=== PATIENT | male | born 1960 | race Two or more races ===

== ENCOUNTER 2020-09-07 13:15 | Day surgery (SDC) | payer MEDICARE, OTHER ==
[~2020-09-07] VITALS: Ht 170.2 cm; Wt 78.4 kg
[~2020-09-07 13:15] MED LIST: ASCO500 PO; CYAN500 PO; DOXA2 PO; FLUOXETINE HCL60 MG PO; Inderal60 MG; MECL25 PO; Maxalt10 MG; NORT25 PO; Prozac20 MG; REYVOW PO; VITAMIN D325 MC3 PO
[2020-09-07] MEDS ORDERED: Inderal60 MG (14:12)
[2020-09-07] MEDS ORDERED: DOXA2 (14:12)
--- NOTE | 2020-09-07 15:15 | NUR ---
09/07/20 1515 Yuridia Gomez PT. TOOK THE SUTAB PILLS FOR HIS PREP FOR COLONOSCOPY.
== END 2020-09-07 15:30 | disposition home or self-care (01) ==
LOC: ORSCSDS 13:15
PROVIDERS: Surgery
PROC: 0DBN8ZX Excision of Sigmoid Colon, Via Natural or Artificial Opening Endoscopic, Diagnostic (ICD-10-PCS; principal; 2020-09-07 14:15)
PROC: 0DBM8ZX Excision of Descending Colon, Via Natural or Artificial Opening Endoscopic, Diagnostic (ICD-10-PCS; principal; 2020-09-07 14:15)
DX: Z12.11 Encounter for screening for malignant neoplasm of colon (principal); Z86.010 Personal history of colon polyps; D12.4 Benign neoplasm of descending colon; D12.5 Benign neoplasm of sigmoid colon; I10 Essential (primary) hypertension; E78.00 Pure hypercholesterolemia, unspecified; K21.9 Gastro-esophageal reflux disease without esophagitis; Z79.899 Other long term (current) drug therapy
CPT/HCPCS: 88305; J2704; J7120